=== PATIENT | female | born 1945 | race Caucasian/White ===

== ENCOUNTER 2016-11-18 17:12 | Emergency (ER) | payer MEDICARE, OTHER ==
[~2016-11-18] VITALS: Ht 172.7 cm; Wt 65.8 kg
[2016-11-18] MEDS ORDERED: XARELTO10 MG PO (18:26)
[2016-11-18] MEDS ORDERED: FOSAMAX70 MG PO (18:26)
[2016-11-18] MEDS ORDERED: ELAVIL50 MG PO (18:27)
[2016-11-18] MEDS ORDERED: SYNTHROID75 MCG PO (18:28)
[2016-11-18] MEDS ORDERED: ASPIRIN81 MG PO (18:28)
[2016-11-18] MEDS ORDERED: TOPROL XL50 MG PO (18:28)
[2016-11-18] MEDS ORDERED: CHLORDIAZEPOXIDE 10 MG PO (18:29)
[2016-11-18] MEDS ORDERED: RESTASIS1 EACH EYEBOTH (18:30)
== END 2016-11-18 19:03 | disposition short-term general hospital (02) ==
LOC: ER 17:12
DX: B37.49 Other urogenital candidiasis (principal); R31.9 Hematuria, unspecified; I48.91 Unspecified atrial fibrillation; G43.909 Migraine, unspecified, not intractable, without status migrainosus; E03.9 Hypothyroidism, unspecified; I10 Essential (primary) hypertension; Z79.899 Other long term (current) drug therapy; Z88.2 Allergy status to sulfonamides; Z88.1 Allergy status to other antibiotic agents